=== PATIENT | male | born 1955 | race Hispanic/Latino ===

== ENCOUNTER → 2019-12-02 | Day surgery (SDC) | payer BC, OTHER ==
[~2019-12-02] MED LIST: BUPIVACAINE HCL 0.5% INJ 30 ML VIAL INJ ONE; CEFAZOLIN SOD 1 GM/NS 50ML 50 ML IV ONE; DEXAMETHASONE SOD PHOS INJ 4 MG/ML VIAL ONE; FENTANYL CITRATE/PF 100MCG/2 ML INJ ONE; KETOROLAC TROMETHAMINE 30 MG/ML VIAL ONE; LIDOCAINE HCL 2% LOCAL INJ 5 ML SDV VIAL INJ ONE; MIDAZOLAM HCL 2 MG/2 ML VIAL ONE; NORCO 5-325 TA1 EACH PO; ONDANSETRON HCL INJ 2MG/ML 2ML 2 MG/ML VIAL ONE; PROPOFOL IV EMULSION 10 MG/ML 20 ML VIAL ONE; SEVOFLURANE INHAL SOLN 250 ML PEN BTL ONE
[2019-12-02 09:10] VITALS: BP 128/75
--- NOTE | 2019-12-02 19:11 | Operative Report ---
DATE OF PROCEDURE: 12/02/2019 SURGEON: Sarai Madera DPM ([place]) PREOPERATIVE DIAGNOSIS: Hallux limitus, left. POSTOPERATIVE DIAGNOSIS: Hallux limitus, left. PROCEDURES: A Tomas bunionectomy with total implant. DESCRIPTION OF PROCEDURE: The patient was placed on the OR table in the supine position. The left lower extremity was prepped and draped in the usual manner. A general anesthetic was administered and hemostasis accomplished using a pneumatic cuff set at 350 mmHg at the level. An incision approximately 4 cm in length was made on the dorsal medial aspect of the 1st metatarsophalangeal joint of the left foot. The incision was deepened exposing the capsule. The capsule was then opened with a linear incision and was dissected away from the head of the metatarsal and also the base of the proximal phalanx. At this time, utilizing a power saw, 1 cm of the proximal phalanx was removed and also the articulating cartilage on the distal aspect of the metatarsal was removed. Also, the large bony exostosis on the dorsal, medial, and lateral aspect were removed with a power saw and then smoothed with a hand rasp. Using the Sizer for the implants, it was determined that we would use a size 3 total implant, so the guidewire was then placed from proximal to distal in the 1st metatarsal and using the bur that comes with the implant, the stem hole was made in the metatarsal. The K-wire was then inserted from proximal to distal in the middle phalanx and then the stem hole was also packed. The wound was flushed with sterile saline solution. The grommets were placed both on the 1st metatarsal and the base of the proximal phalanx. At this time, the size 3 implant was inserted into the wound. The wound was flushed again with sterile saline solution. The capsule was closed with 2-0 Vicryl and the skin with 4-0 nylon. Following the case, 9 mL of 0.5 Marcaine and 1 mL of Decadron were injected. A sterile compression dressing was applied. At this time, the pneumatic cuff was released and a reflex hyperemia was observed to all digits. The patient tolerated the procedure and anesthesia well and left the OR to recovery in good condition with vital signs stable. S CHANTAL De La Cruz ([place])/KAYLAL /[id number]
== END | disposition home or self-care (01) ==
LOC: OR 05:13
PROVIDERS: ATTEND Podiatrist Foot & Ankle Surgery
DX: M20.5X2 Other deformities of toe(s) (acquired), left foot (principal); M20.22 Hallux rigidus, left foot; Z01.810 Encounter for preprocedural cardiovascular examination; Z01.812 Encounter for preprocedural laboratory examination; Z11.59 Encounter for screening for other viral diseases
CPT/HCPCS: 28291; 93005; C1776; J0690; J1100; J1885; J2001; J2250; J2405; J2704; J3010; U0002